=== PATIENT | male | born 1960 | race Caucasian/White ===

== ENCOUNTER 2017-04-08 20:20 | Emergency (ER) | payer OTHER ==
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
[~2017-04-08 20:20] MED LIST: ASPIRIN PO; CARAFATE PO; DIAZEPAM PO; FLEXERIL10 MG PO; GLUCOTROL PO; LORTAB 10/500 T1 TAB PO; LOTREL 10/20 MG1 CAP PO; LOTREL PO; MEDROL PO; NAPROSYN500 MG PO; NEXIUM PO; PEGASUS; PHENERGAN PO; PREDNISONE PO; REBETOL200 MG PO; SKELAXIN PO; SYNTHROID PO; VICODIN 5/500 T1 TAB PO
[2017-04-08] MEDS ORDERED: GLUCOPHAGE500 MG PO (20:30)
[2017-04-08] MEDS ORDERED: SYNTHROID PO (20:30)
[2017-04-08] MEDS ORDERED: LORTAB PO (20:31)
[2017-04-08] MEDS ORDERED: LISINOPRIL (20:31)
[2017-04-08] MEDS ORDERED: VALIUM10 M1 (20:31)
[2017-04-08] MEDS ORDERED: ALBUTEROL17 GM INH (20:32)
== END 2017-04-08 23:15 | disposition home or self-care (01) ==
LOC: SED 20:20
DX: S39.012A Strain of muscle, fascia and tendon of lower back, initial encounter (principal); S20.212A Contusion of left front wall of thorax, initial encounter; I10 Essential (primary) hypertension; E11.9 Type 2 diabetes mellitus without complications; F17.210 Nicotine dependence, cigarettes, uncomplicated; Z86.19 Personal history of other infectious and parasitic diseases; Z88.5 Allergy status to narcotic agent; Z79.899 Other long term (current) drug therapy; Y04.0XXA Assault by unarmed brawl or fight, initial encounter; Y07.499 Other family member, perpetrator of maltreatment and neglect; Y92.009 Unspecified place in unspecified non-institutional (private) residence as the place of occurrence of the external cause
CPT/HCPCS: 71100; 72100; 96372; 99284; J1885; J2360

== ENCOUNTER 2017-07-06 12:22 | Emergency (ER) | payer OTHER ==
--- NOTE | ~2017-07-06 | EKG ---
PATIENT: MAKEDA BOOTH UNIT #: [id number] Ventricular Rate: 85 BPM Atrial Rate: 85 BPM P-R Interval: 142 ms QRS Duration: 88 ms Q-T Interval: 364 ms QTC Calculation(Bezet): 433 ms P [place]: 74 degrees Calculated R [place]: -41 degrees Calculated T [place]: 73 degrees Diagnosis Line: Normal sinus rhythm Diagnosis Line: Left axis deviation Diagnosis Line: Otherwise normal ECG Diagnosis Line: No previous ECGs available Diagnosis Line: Confirmed by GHAZALA ARRINGTON MD ([id number]) on 07/07/2017 Diagnosis Line: 4:38:06 PM INTERPRETING MD: MURPHY PATTERSON
--- NOTE | ~2017-07-06 | CT71 ---
[facility]. [facility] A Service of [facility] RADIOLOGY TEXT RESULTS PATIENT: MAKEDA BOOTH LOCATION: SED : 62 UNIT #: [id number] AGE: [address]: Sylvester Gorman MD SEX: M ORDER DR: [id number] [place] [id number] E MR#: [id number] Acc #: [id number] NAME: MAKEDA BOOTH : 1960 SEX: M STUDY DATE/TIME: 07/06/2017 13:34 UNIT: SED ROOM: STUDY DESCRIPTION: CT Head Wo Contrast Attending Physician: Sylvester Gorman M.D. Ordering Physician: Sylvester Gorman M.D. Primary Care Physician: Torri Wharton M.D. MEDICAL IMAGING REPORT This report is preliminary unless electronic signature is present. EXAM Noncontrast head CT. HISTORY Dizziness, headaches, chest pain since yesterday. FINDINGS Axial noncontrast imaging of the brain demonstrates the brain parenchyma to be normal. This CT exam was performed with one or more of the following radiation dose reduction techniques: automatic control, adjustment of mA and/or kV according to patient size, and iterative reconstruction. No evidence of mass, mass effect or midline shift. No hemorrhage or abnormal extraaxial fluid collections. Ventricles, sulci and basilar cisterns appear normal. Bony calvaria skull base mastoids and sinuses unremarkable. IMPRESSION Negative noncontrast head CT. Dictated by... Teresa Belle M.D. THIS IS AN ELECTRONICALLY VERIFIED REPORT Teresa Belle M.D. at 07/07/2017 5:03 PM BRENDA/laura TD: 07/06/2017 19:42 JOB #: [id number] MEDICAL IMAGING REPORT Page 1 of 1
[~2017-07-06 12:22] MED LIST changes: +ALBUTEROL17 GM INH; +GLUCOPHAGE500 MG PO; +LISINOPRIL; +LORTAB PO; +VALIUM10 M1
[2017-07-06 13:05] LABS: BASOPHIL# 0.1 X10e3 (0-0.3); BASOPHIL% 0.8 % (0-2.5); EOSINOPHIL# 0.1 X10e3 (0-0.7); EOSINOPHIL% 1.5 % (0.0-7.0); HEMATOCRIT 45.2 % (38.0-50.0); HEMOGLOBIN 15.5 gm/dL (13.0-16.0); LYMPHOCYTE# 2.3 X10e3 (1.0-3.5); MEAN CELL VOLUME 91.4 FL (83-96); MEAN CORPUSCULAR HEMOGLOBIN 31.3 PG (28-34); MEAN CORPUSCULAR HGB CONC 34.2 g/dL (30-36); MEAN PLATELET VOLUME 7.4 FL (6.5-11.5); MONOCYTE# 0.6 X10e3 (0-1.0); MONOCYTE% 7.4 % (3.0-12.0); NEUTROPHIL# 4.4 X10e3 (1.5-7.1); NEUTROPHIL% 59.3 % (40-75); PLATELET COUNT 232 X10e3 (140-420); RED BLOOD COUNT 4.94 X10e (3.90-5.60); RED CELL DISTRIBUTION WIDTH 13.7 % (11.0-15.5); WHITE BLOOD COUNT 7.5 X10e3 (4.0-10.5)
[2017-07-06 13:06] LABS: DIFF IND NO
[2017-07-06 13:08] LABS: POC - CKMB 2.6 ng/mL (0.0-7.9); POC - MYOGLOBIN 54.3 ng/mL (0.0-169.0)
[2017-07-06 13:09] LABS: POC - TROPONIN <0.05 ng/mL (<=0.05)
[2017-07-06 13:11] LABS: URINE APPEARANCE CLEAR; URINE BILIRUBIN NEG (NEG); URINE BLOOD NEG (NEG); URINE COLOR YELLOW; URINE GLUCOSE 50 MG/DL (NORM); URINE KETONE NEG (NEG); URINE LEUKOCYTE ESTERASE NEG (NEG); URINE NITRATE NEG (NEG); URINE PROTEIN NEG (NEG); URINE SOURCE CLEAN CATCH; URINE UROBILINOGEN 0.2 MG/DL (NORM)
[2017-07-06 13:13] LABS: MICRO INDICATED? NO
[2017-07-06 13:17] LABS: ALBUMIN SERUM 4.2 g/dL (3.5-5.0); ALKALINE PHOSPHATASE 71 U/L (32-92); ALT (SGPT) 21 U/L (10-40); AST (SGOT) 22 U/L (10-42); BILIRUBIN,TOTAL 0.5 mg/dL (0.2-2.0); BLOOD UREA NITROGEN 9 mg/dL (9-23); BUN/CREATININE RATIO 12.85; CALCIUM SERUM 8.6 mg/dL (8.4-10.2); CARBON DIOXIDE 25 mmol/L (22-31); CHLORIDE 100 mmol/L (100-111); CREATININE SERUM 0.7 mg/dL (0.6-1.4); GLOM FILT RATE Estimated 105.5 mL/min (>60); GLUCOSE FASTING 209 mg/dL (70-110); POTASSIUM 3.4 mmol/L (3.5-5.1); PROTEIN TOTAL SERUM 7.7 g/dL (6.0-8.3); SODIUM 134 mmol/L (135-145)
[2017-07-06 13:23] LABS: BILIRUBIN, DIRECT <0.1 mg/dL (0.0-0.2); BILIRUBIN,INDIRECT 0.4 mg/dL (0.0-0.9)
== END 2017-07-06 14:53 | disposition home or self-care (01) ==
LOC: SED 12:22
PROVIDERS: Emergency Medicine
DX: E11.65 Type 2 diabetes mellitus with hyperglycemia (principal); R42 Dizziness and giddiness; I10 Essential (primary) hypertension; F17.200 Nicotine dependence, unspecified, uncomplicated; Z86.19 Personal history of other infectious and parasitic diseases; Z98.890 Other specified postprocedural states
CPT/HCPCS: 36415; 70450; 80048; 80076; 81003; 82553; 83874; 84484; 85025; 93005; 96361; 96374; 99284; J2405